=== PATIENT | female | born 1985 | race Two or more races ===

== ENCOUNTER → 2022-10-07 | Outpatient (CLI) | payer MEDICAID ==
[2022-10-07 10:26] LABS: Basophils # (auto) 0 10 ^3/uL (0-0.2); Basophils % (auto) 0.6 % (0.0-2.0); Eosinophils # (auto) 0.1 10 ^3/uL (0-0.8); Eosinophils % (auto) 1.4 % (0.0-7.0); Hematocrit 41.6 % (36.0-46.0); Hemoglobin 13.7 g/dL (12.2-16.2); Lymphocytes # (auto) 1.8 10 ^3/uL (0.4-5.4); Lymphocytes % (auto) 27.3 % (10.0-50.0); Mean Corpuscular Volume 87.9 fL (80.0-100.0); Monocytes # (auto) 0.3 10 ^3/uL (0-1.3); Monocytes % (auto) 5.3 % (0.0-12.0); Neutrophils # (auto) 4.3 10 ^3/uL (1.6-8.6); Neutrophils % (auto) 65.4 % (37.0-80.0); Red Blood Cells 4.73 10^6/uL (4.0-5.20); Red Cell Distribution Width 13.5 % (11.8-14.3); White Blood Cell 6.5 10^3/uL (4.4-10.8)
[2022-10-07 10:31] LABS: Urine Bacteria NONE SEEN /hpf (None Seen); Urine Blood 3+ /uL (Negative); Urine Mucus FEW (None Seen); Urine Specific Gravity 1.027 (1.001-1.035); Urine WBC 5 /hpf (0 - 5)
[2022-10-07 11:06] LABS: Albumin 3.9 g/dL (3.4-5.0); Calcium 10.1 mg/dL (8.5-10.1); Potassium 3.9 mmol/L (3.5-5.1)
[2022-10-07 11:12] LABS: BUN/Creatinine Ratio 23.7; Bilirubin, Total 0.8 mg/dL (0.2-1.0); Total Protein 7.5 g/dL (6.4-8.2)
== END | disposition home or self-care (01) ==
LOC: LAB 10:09
PROVIDERS: ATTEND Student in an Organized Health Care Education/Training Program
DX: E55.9 Vitamin D deficiency, unspecified (principal); N39.0 Urinary tract infection, site not specified; R73.9 Hyperglycemia, unspecified; R03.0 Elevated blood-pressure reading, without diagnosis of hypertension
CPT/HCPCS: 36415; 80053; 80061; 81001; 82306; 83036; 84439; 84443; 85025; 87086

== ENCOUNTER 2024-04-23 04:12 | Emergency (ER) | payer MEDICAID ==
[~2024-04-23] VITALS: Ht 157.5 cm; Wt 87.5 kg
[2024-04-23 04:23] VITALS: BP 139/80; PULSE 58; RESP 18; TEMP 98.1
[2024-04-23 06:20] VITALS: O2SAT 100
[2024-04-23] MEDS: methylPREDNISolone SOD SUCC 125 MG/2 ML VL IM ONE (06:50)
[2024-04-23] MEDS ORDERED: IBUP1TAB5 PO (06:51)
[2024-04-23] MEDS ORDERED: PRED20TA2 PO (06:51)
[2024-04-23] MEDS: KETOROLAC TROMETH 30 MG/ML 1ML VIAL IM ONE (06:52)
== END 2024-04-23 07:22 | disposition home or self-care (01) ==
LOC: ER 04:17
DX: M25.532 Pain in left wrist (principal); Z98.890 Other specified postprocedural states
CPT/HCPCS: 29125; 96372; 99284; J1885; J2919